=== PATIENT | male | born 1960 | race Caucasian/White ===

== ENCOUNTER 2024-04-18 09:23 | Emergency (ER) | payer OTHER ==
[~2024-04-18] VITALS: Ht 175.3 cm; Wt 95.3 kg
[2024-04-18 09:25] VITALS: BP 152/83; PULSE 77; RESP 19; TEMP 97.7; O2SAT 95
[2024-04-18] MEDS: LIDOCAINE MPF 1% 10 MG/ML VIAL INJ ONE (10:32)
[2024-04-18] MEDS ORDERED: LID5T TP (10:40)
[2024-04-18] MEDS ORDERED: ACET-10509 PO (10:40)
[2024-04-18] MEDS ORDERED: NAPR-1704 PO (10:40)
[2024-04-18 10:59] VITALS: BP 152/83; PULSE 77; RESP 19; TEMP 97.7; O2SAT 95
== END 2024-04-18 10:59 | disposition home or self-care (01) ==
LOC: MED 09:23
DX: M62.830 Muscle spasm of back (principal); F17.200 Nicotine dependence, unspecified, uncomplicated; E11.9 Type 2 diabetes mellitus without complications; I10 Essential (primary) hypertension; E78.5 Hyperlipidemia, unspecified; Z79.1 Long term (current) use of non-steroidal anti-inflammatories (NSAID); Z79.899 Other long term (current) drug therapy
CPT/HCPCS: 20552; 99284; J2001; 99282